=== PATIENT | female | born 1995 | race Caucasian/White ===

== ENCOUNTER 2016-07-24 13:03 | Emergency (ER) | payer BC ==
[~2016-07-24] VITALS: Ht 172.7 cm; Wt 106.5 kg
[2016-07-24 13:08] VITALS: TEMP 36.7; Ht 172.7 cm; Wt 106.5 kg
--- NOTE | 2016-07-24 13:27 | EMERGENCY ROOM VISIT NOTE ---
ED Visit Note First contact with patient: 13:10 CHIEF COMPLAINT: Earache HISTORY OF PRESENT ILLNESS: This 21 year old female patient presents to the emergency department ambulatory and states they have had a rate sided earache for the last 3 days. The pain is moderate, and is gradually increasing. They have noticed swelling and tenderness around the ear canal and pain below the ear on the upper neck. The pain is rated as sharp and 6/10. The patient has been swimming recently. The patient does not have a history of ear problems. The patient has not had other URI symptoms. The patient has not had a fever. The patient has been taking amoxicillin for 2 days. She states that she notices discharge and swelling as well as pain in the right tragus. REVIEW OF SYSTEMS: A 10 system review of systems was completed with positives and pertinent negatives listed in the HPI. ALLERGIES: No known drug allergies MEDICATIONS: None PMH: None SOCIAL HISTORY: The patient lives locally PHYSICAL EXAM: Vital Signs: Reviewed Nurse's notes, vital signs stable. GENERAL : This is a 21-year-old female, in no acute distress, non toxic in appearance, well developed, well nourished. SKIN: Normal. MOUTH: The pharynx is normal in appearance and the tonsils are not enlarged. The airway is patent. There are no exudates over the tonsils. EARS: There is debris in the right external auditory canal. There is moderate tragus tenderness. There is no tenderness or swelling over the mastoid on the right. The right tympanic membrane cannot be seen well because of the swelling in the canal. The left tympanic membrane is pearly fontanez without erythema or bulging and the external auditory canal is clear. HEART: Regular rate and rhythm without murmurs gallops or rubs. LUNGS: Clear to auscultation bilaterally without wheezes, rales or rhonchi. No dullness to percussion. No accessory muscle use. No retractions. ED COURSE: I examined the patient. A wick was easily placed in the right ear by myself. Cipro 5 drops were placed in the right ear. The patient was discharged home in stable condition. DIAGNOSIS: Acute right otitis externa DISCHARGE INSTRUCTIONS & TREATMENT: ciprodex otic drops, 5 in the ear canal 2 times a day for 7 days. Continue the amoxicillin as prescribed, until finished. The ear wick will fall out when the swelling in the ear canal diminishes. Recheck with the family doctor in 7-10 days. Return with any fevers, worsening pain. Current/Historical Medications No Active Prescriptions or Reported Meds Allergies Coded Allergies: No Known Allergies (Unverified , 07/24/16) Vital Signs Date Time Temp Pulse Resp B/P (MAP) Pulse Ox O2 Delivery O2 Flow Rate FiO2 07/24/16 14:31 72 16 131/79 96 07/24/16 13:08 36.7 110 20 136/85 96 Room Air Medications Administered Medications (Trade) Dose Ordered Sig/Shyam Route Start Time Stop Time Status Last Admin Dose Admin Ciprofloxacin/ Dexamethasone (Ciprodex Otic Susp) 5 drops NOW STAT OT 07/24/16 13:38 07/24/16 13:39 DC 07/24/16 14:19 5 DROPS Departure Information Impression Primary Impression: Otitis externa Dispostion Home / Self-Care Condition GOOD Prescriptions No Active Prescriptions or Reported Meds Patient Instructions ED Otitis Externa, [facility] Additional Instructions ciprodex otic drops, 5 in the ear canal 2 times a day for 7 days. Continue the amoxicillin as prescribed, until finished. The ear wick will follow out when the swelling in the ear canal diminishes. Recheck with the family doctor in 7-10 days. Return with any fevers, worsening pain. Problem Qualifiers Primary Impression: Otitis externa
[2016-07-24] MEDS ORDERED: CIPRO 0.2%/HYDROCORTISONE 1% OTIC SUSP 10 ML BTL OT STA (13:29)
[2016-07-24] MEDS ORDERED: CIPRO 0.3%/DEXAMETHASONE 0.1% OTIC SUSP 7.5ML OT STA (13:38)
[2016-07-24 14:31] VITALS: BP 131/79; PULSE 72; O2SAT 96
== END 2016-07-24 14:25 | disposition home or self-care (01) ==
LOC: C.EDB 13:05 → C.EDD 14:25
DX: H60.501 Unspecified acute noninfective otitis externa, right ear (principal)